=== PATIENT | male | born 2000 ===

== ENCOUNTER 2022-05-20 12:03 | Emergency (ER) | payer SELFPAY ==
[2022-05-20 13:13] VITALS: BP 113/78
--- NOTE | 2022-05-20 13:15 | Emergency Department Report ---
Suture/Staple Removal - HPI Chief Complaint: Laceration/Recheck/Suture Stated Complaint: REMOVE 5 STICHES Time Seen by Provider: 05/20/22 13:15 When Sutures or Carter Placed: 8-10 Days Ago Wound Location: HAND ED Review of Systems ROS: Stated complaint: REMOVE 5 STICHES Other details as noted in HPI Comment: All other systems reviewed and negative ED Past Medical Hx - Past Medical History Previous Medical History?: No - Surgical History Past Surgical History?: No - Family History Family history: no significant - Social History Smoking Status: Current Every Day Smoker Substance Use Type: Alcohol Suture Removal Exam - Exam General: Vital signs noted. No distress. Alert and acting appropriately. Wound: No Pathologic Erythema, No Tenderness, No Drainage, No Pus, No Wound Dehiscence Other Systems: All other systems reviewed and are unremarkable. ED Course Vital Signs 05/20/22 13:04 Temperature 98.2 F Pulse Rate 62 Respiratory 18 Rate Blood Pressure 113/78 [Left] O2 Sat by Pulse 98 Oximetry ED Recheck MDM - Core Measures Measure Exclusions: not indicated - Differential Diagnosis Suture/Staple Removal - Medical Decision Making SUTURES REMOVED WO DIFFICULTY NO S/S INFECTION Vital Signs 05/20/22 13:04 Temperature 98.2 F Pulse Rate 62 Respiratory 18 Rate Blood Pressure 113/78 [Left] O2 Sat by Pulse 98 Oximetry DC HOME WITH DC PLAN OF CARE- VERBALIZES UNDERSTANDING OF PLAN OF CARE Critical care attestation.: If time is entered above; I have spent that time in minutes in the direct care of this critically ill patient, excluding procedure time. ED Disposition Clinical Impression: Removal of staple Disposition: 01 HOME / SELF CARE / HOMELESS Is pt being admited?: No Does the pt Need Aspirin: No Condition: Stable Time of Disposition: 16:00
== END 2022-05-20 16:15 | disposition left against medical advice (07) ==
LOC: ED 12:03
DX: S61.411D Laceration without foreign body of right hand, subsequent encounter (principal); Z53.21 Procedure and treatment not carried out due to patient leaving prior to being seen by health care provider; X58.XXXD Exposure to other specified factors, subsequent encounter